=== PATIENT | male | born 1980 | race Caucasian/White ===

== ENCOUNTER 2020-09-01 15:15 | Emergency (ER) | payer BC, SELFPAY ==
[2020-09-01] VITALS (15 sets, daily range): BP systolic 117–138; BP diastolic 71–85; PULSE 67–86; RESP 12–20; TEMP 36.2–36.7; O2SAT 98–100
--- NOTE | ~2020-09-01 | XR_ITS ---
XR chest 2V DATE: 09/01/2020 17:10 INDICATION: Chest pressure, palpitations. Lightheadedness. TECHNIQUE: PA and lateral views COMPARISON: None FINDINGS: Normal heart size. No hilar or mediastinal enlargement. No pulmonary infiltrate or consolid ation, pleural effusion or pulmonary vascular congestion or pneumothorax is detected. IMPRESSION: No active cardiopulmonary disease Reviewed, dictated and finalized at location A. [employer]
--- NOTE | 2020-09-01 15:24 | ECG_ITS ---
Measurements Intervals [place] Rate: 84 P: 70 RI: 132 QRS: 28 QRSD: 96 T: 50 QT: 343 QTc: 405 Interpretive Statements SINUS RHYTHM INCOMPLETE RIGHT BUNDLE BRANCH BLOCK BORDERLINE ECG Electronically Signed On 09-01-2020 15:56:26 [employer] by Jake Shen D.O.
[2020-09-01 15:47] LABS: Basophils Absolute Auto 0.1 K/mm3 (0.0-0.1); Eosinophils Absolute Auto 0.1 K/mm3 (0-0.3); Eosinophils Percent Auto 1.6 % (0-4.4); Hematocrit 43.1 % (42.0-52.0); Hemoglobin 14.6 g/dL (14.0-18.0); Immature Granulocyte Absolute 0.06 K/mm3 (0.00-0.031); Immature Granulocyte Percent A 0.7 % (0-0.5); Lymphocytes Absolute Auto 2.15 K/mm3 (0.9-3.2); Lymphocytes Percent Auto 25.8 % (18.3-44.2); Mean Corpuscular HGB Conc 33.9 g/dl (32-36); Mean Corpuscular Hemoglobin 30.4 pg (26-34); Mean Corpuscular Volume 89.6 fl (80-100); Mean Platelet Volume 11.3 fl (7.4-10.4); Monocytes Absolute Auto 0.4 K/mm3 (0.1-0.6); Monocytes Percent Auto 4.8 % (2.6-8.5); Neutrophils Absolute Auto 5.5 K/mm3 (1.3-6.7); Neutrophils Percent Auto 66.1 % (45.5-73.1); Platelet Count Result 284 k/mm3 (150-375); Red Blood Count 4.81 M/mm3 (4.6-6.20); Red Cell Distribution Width 13.4 % (11.5-14.5); White Blood Count 8.3 K/mm3 (4.5-10.0)
[2020-09-01 15:57] LABS: INR 0.9; Prothrombin Time 12.8 Seconds (11.1-14.7)
[2020-09-01 15:58] LABS: Anion Gap 7 mmol/L (8-16); Blood Urea Nitrogen 14 mg/dL (9-20); Calcium 9.5 mg/dL (8.4-10.2); Carbon Dioxide 30 mmol/L (22-30); Chloride 102 mmol/L (98-107); Estimated CRCL calculation 121 ml/min; Estimated Glomerular Filt Rate > 60; Glucose 115 mg/dL (75-110); Partial Thromboplastin Time 28.7 SECONDS (22.3-36.8); Potassium 3.8 mmol/L (3.4-5.0); Sodium 139 mmol/L (137-145)
[2020-09-01 16:10] LABS: Troponin I < 0.012 ng/mL (0.000-0.034)
[2020-09-01] MEDS: Please add drug allergy info to patient profile. XX (17:19)
--- NOTE | 2020-09-01 18:44 | ED.GENADULT ---
HPI - General Adult General Chief complaint: Arrhythmia/Palpitations Stated complaint: my heartbeat is way off Time Seen by Provider: 09/01/20 16:53 Source: patient History of Present Illness HPI narrative: Patient is a 40 y/o male complaining of intermittent heart palpitation for last 2 months. He states that he had approximately 4 episodes during last 2 months. He states that there is no aggravating or alleviating factor. He states that these episodes usually last 10-15 minutes and resolve spontaneously. He denies any chest pain or SOB. He does not feel any palpitation at this time. Related Data Allergies Allergy/AdvReac Type Severity Reaction Status Date / Time ciprofloxacin [From Cipro] Allergy Cramping Verified 09/01/20 17:16 of the Muscles Review of Systems Constitutional: Constitutional: Denies chills, Denies fever(s), Denies headache(s) and Denies weakness Eyes: Eyes: Denies blurry vision ENT: Denies headache(s) and Denies neck pain Cardiovascular: Cardiovascular: Denies chest pain, Reports rapid heart rate and Denies dyspnea Respiratory: Respiratory: Denies cough and Denies dyspnea Gastrointestinal: Gastrointestinal: Denies abdominal pain, Denies diarrhea, Denies nausea and Denies vomiting Genitourinary: Genitourinary: Denies hematuria and Denies dysuria Musculoskeletal: Musculoskeletal: Denies back pain and Denies neck pain Neurologic: Denies headache(s) and Denies weakness PMFSH Social History Social History Gender identity (if verbalized by the patient): Male Exam Const: General: no acute distress and well developed Orientation/consciousness: oriented to person, oriented to place, oriented to time and patient oriented x3 HENMT: Head: normocephalic Ears: external ears normal General nose exam: Normal external nose present Eyes: General: appearance normal, both eyes and all related structures Conjunctivae: conjunctivae normal Neck: Neck: normal visual inspection and full ROM Chest: Chest palpation & inspection: normal inspection of the chest and no tenderness Resp: Effort & Inspection: normal respiratory effort Auscultation: clear to auscultation bilaterally Cardio: Rate: regular rate Rhythm: regular rhythm GI: GI Palp: No abdominal tenderness and Yes Soft to palpation Skin: General skin exam: normal color and turgor normal Neuro: General: oriented to person, oriented to place, oriented to time and patient oriented x3 Cognition (Neuro): normal cognition Extrem: General: normal to inspection, full ROM and no pedal edema Psych: Appearance: grossly normal Mental Status: mental status grossly normal Affect: normal affect Course Vital Signs Vital signs: Vital Signs Temperature 36.2 C L 09/01/20 15:40 Pulse Rate 86 09/01/20 15:40 Respiratory Rate 14 09/01/20 15:40 Blood Pressure 138/85 09/01/20 15:40 Pulse Oximetry 100 09/01/20 15:40 Temperature 36.2 C L 09/01/20 15:40 Pulse Rate 70 09/01/20 18:40 Respiratory Rate 16 09/01/20 18:40 Blood Pressure 117/83 09/01/20 18:40 Pulse Oximetry 100 09/01/20 18:40 Medical Decision Making Vital Signs Vital Signs: Vital Signs Temperature 36.2 C L 09/01/20 15:40 Pulse Rate 86 09/01/20 15:40 Respiratory Rate 14 09/01/20 15:40 Blood Pressure 138/85 09/01/20 15:40 Pulse Oximetry 100 09/01/20 15:40 Temperature 36.2 C L 09/01/20 15:40 Pulse Rate 70 09/01/20 18:40 Respiratory Rate 16 09/01/20 18:40 Blood Pressure 117/83 09/01/20 18:40 Pulse Oximetry 100 09/01/20 18:40 Lab Data Result diagrams: 09/01/20 15:41 09/01/20 15:41 Labs: Lab Results 09/01/20 09/01/20 09/01/20 Range/Units 15:41 15:41 15:41 WBC 8.3 (4.5-10.0) K/mm3 RBC 4.81 (4.6-6.20) M/mm3 Hgb 14.6 (14.0-18.0) g/dL Hct 43.1 (42.0-52.0) % MCV 89.6 (80-100) fl MCH 30.4 (26-34) pg MCH
[2020-09-01 19:07] LABS: Troponin I < 0.012 ng/mL (0.000-0.034)
== END 2020-09-01 19:37 | disposition home or self-care (01) ==
PROVIDERS: Emergency Medicine; Emergency Provider Emergency Medicine
DX: R00.2 Palpitations (principal)
CPT/HCPCS: 36415; 71046; 80048; 84484; 85025; 85610; 85730; 93005; 99284